=== PATIENT | female | born 1955 | race Hispanic/Latino ===

== ENCOUNTER 2023-03-24 14:44 | Emergency (ER) | payer OTHER, MEDICARE ==
[~2023-03-24] VITALS: Ht 157.5 cm; Wt 81.2 kg
[2023-03-24 17:02] LABS: HEMATOCRIT 28.8 % (36-48); MEAN CORPUSCULAR HEMOGLOBIN 31.8 pg (27.0-33.0); MEAN CORPUSCULAR HGB CONC 32.6 g/dL (32.0-36.0); MEAN CORPUSCULAR VOLUME 97.3 fL (79-99); PLATELET COUNT (AUTO) 72 K/uL (130-400); RED BLOOD CELL COUNT(AUTO) 2.96 MIL/uL (4.00-5.50); RED CELL DISTRIBUTION WIDTH 13.2 % (11.0-15.5); WHITE BLOOD COUNT (AUTO) 2.8 K/uL (4.8-10.8)
[2023-03-24 18:00] VITALS: BP 149/89; PULSE 75; RESP 18; O2SAT 99
[2023-03-24 18:02] LABS: BAND NEUTROPHILS % (MANUAL) 2 % (0-2); EOSINOPHILS % (MANUAL) 8 % (1-6); LYMPHOCYTES % (MANUAL) 12 % (22-44); MAN.DIFF COMMENT-IMPRESSION MANUAL DIFFERENTIAL; MONOCYTES % (MANUAL) 6 % (2-9); REACTIVE LYMPHOCYTES 6 % (0-0); SEGMENTED NEUTROPHILS % 66 % (40-70); TOTAL CELLS COUNTED 100; WBC MORPHOLOGY TOXIC GRANULATION 1+
[2023-03-24 18:03] LABS: PLATELET MORPHOLOGY COMMENT DECREASED
== END 2023-03-24 18:03 | disposition home or self-care (01) ==
LOC: EDH 14:44
DX: T82.838A Hemorrhage due to vascular prosthetic devices, implants and grafts, initial encounter (principal); I12.9 Hypertensive chronic kidney disease with stage 1 through stage 4 chronic kidney disease, or unspecified chronic kidney disease; E11.22 Type 2 diabetes mellitus with diabetic chronic kidney disease; N18.9 Chronic kidney disease, unspecified; E03.9 Hypothyroidism, unspecified; Z90.49 Acquired absence of other specified parts of digestive tract; Z90.89 Acquired absence of other organs; Z98.890 Other specified postprocedural states
CPT/HCPCS: 36415; 85025

== ENCOUNTER → 2024-09-10 | Outpatient (CLI) | payer OTHER, MEDICARE ==
--- NOTE | 2024-09-10 15:35 | NUR ---
MBSS COMPLETED (OUTPATIENT). No aspiration; no deep non-transient penetrations. Pt observed with transient penetrations with thin liquids via cup and straw sips during the swallow. Recommend regular solids, thin liquids and pills whole 1 per swallow, cut in half or crushed as tolerated. Compensatory strategies: 1. sit upright during oral intake 2. small bites/sips 3. slow oral intake 4. extra dry swallows DIAGNOSTIC FINDINGS: Oropharyngeal swallowing is within functional limits. No penetrations or aspiration observed. Pt with mild pharyngeal residue cleared with re-swallows. Otherwise, exam was negative for etiology of patients only complain of choking with pills. Recommend swallow pills whole 1 per swallow, cut in half with pudding for smooth transition or crushed with pudding/pureed. RN NEW GRAD reviewed results and recommendations with patient. RN NEW GRAD educated patient on risks and consequences of aspiration. Speech therapy not warranted at this time. All questions answered. Addendum: 09/10/[address] JOSE MADDEN Amended: Links added.
--- NOTE | 2024-09-10 16:22 | HMCIMG ---
MODIFIED BARIUM SWALLOW W CINE INDICATION: Feeding difficulties, unspecified /Dysphagia, oral phase FINDINGS: Modified barium swallow study was performed with the referring speech therapist. Please see procedure report. IMPRESSION: Modified barium swallow study.
== END | disposition home or self-care (01) ==
LOC: RAH 15:07
PROVIDERS: ATTEND Internal Medicine Gastroenterology
DX: R13.11 Dysphagia, oral phase (principal); R63.30 Feeding difficulties, unspecified
CPT/HCPCS: 74230; 92611